=== PATIENT | female | born 1995 | race Caucasian/White ===

== ENCOUNTER 2023-04-02 22:00 | Emergency (ER) | payer OTHER, MEDICAID ==
[2023-04-02] MEDS ORDERED: Doxycycline 100 MG Cap PO ONE (23:08)
[2023-04-02] MEDS ORDERED: cefTRIAXone 500 MG Vial IM ONE (23:08)
[2023-04-04 17:06] LABS: HEPATITIS B SURFACE ANTIBODY <3.10 IU/L
[2023-04-04 19:07] LABS: HEPATITIS A ANTIBODY, IGM Negative (Negative); HEPATITIS B CORE ANTIBODY, IGM Negative (Negative); HEPATITIS B SURFACE ANTIGEN Negative (Negative); HEPATITIS C AB CIA INTERP Negative (Negative); HEPATITIS C ANTIBODY CIA INDEX 0.05 IV; HIV 1,2 COMBO ANTIGEN/ANTIBODY Negative (Negative)
[2023-04-04 22:54] LABS: RAPID PLASMA REAGIN (RPR) Non Reactive (Non Reactive)
[2023-04-06 10:15] LABS: APTIMA MEDIA TYPE Urine; C. TRACHOMATIS BY TMA Negative (Negative); N. GONORRHOEAE BY TMA Negative (Negative); SPECIMEN SOURCE Urine; T. VAGINALIS BY TMA Negative (Negative)
== END 2023-04-03 00:50 | disposition home or self-care (01) ==
LOC: JP.ED 22:00
DX: S16.1XXA Strain of muscle, fascia and tendon at neck level, initial encounter (principal); S50.11XA Contusion of right forearm, initial encounter; S50.12XA Contusion of left forearm, initial encounter; S00.83XA Contusion of other part of head, initial encounter; M25.551 Pain in right hip; M25.552 Pain in left hip; F17.210 Nicotine dependence, cigarettes, uncomplicated; Y04.0XXA Assault by unarmed brawl or fight, initial encounter
CPT/HCPCS: 36415; 70450; 70486; 72125; 76377; 80074; 81025; 86592; 86706; 87389; 87491; 87591; 87661; 96372; 99284; A9270; J0696

== ENCOUNTER 2023-04-06 23:40 | Emergency (ER) | payer MEDICAID, OTHER ==
[2023-04-07 01:17] LABS: BASOPHILS ABSOLUTE AUTO 0.06 K/uL (0.00-0.10); BASOPHILS PERCENT AUTO 0.8 % (0.1-1.3); EOSINOPHILS ABSOLUTE AUTO 0.04 K/uL (0.00-0.40); EOSINOPHILS PERCENT AUTO 0.5 % (0.0-5.4); HEMATOCRIT 45.1 % (34.3-46.0); HEMOGLOBIN 15.2 g/dL (11.2-15.5); IMMATURE GRAN ABSOLUTE AUTO 0.07 K/uL (0.00-0.23); IMMATURE GRAN PERCENT AUTO 0.9 % (0.0-0.7); LYMPHOCYTES ABSOLUTE AUTO 1.73 K/uL (0.8-3.3); LYMPHOCYTES PERCENT AUTO 23.4 % (11.4-47.7); MEAN CORPUSCULAR HEMOGLOBIN 31.7 pg (31.6-35.5); MEAN CORPUSCULAR HGB CONC 33.7 g/dL (31.6-35.5); MONOCYTES ABSOLUTE AUTO 0.48 K/uL (0.20-0.90); MONOCYTES PERCENT AUTO 6.5 % (3.3-12.6); NEUTROPHILS PERCENT AUTO 67.9 % (40.0-78.1); PLATELET COUNT,PLT 352 K/uL (130-375); WHITE BLOOD CELL COUNT,WBC 7.4 K/uL (3.2-11.0)
[2023-04-07 01:43] LABS: APPEARANCE,URINE CLEAR (CLEAR); BILIRUBIN,URINE NEGATIVE (NEGATIVE); COLOR,URINE BROWN (YELLOW); GLUCOSE,URINE NEGATIVE (NEGATIVE); KETONES,URINE NEGATIVE (NEGATIVE); LEUKOCYTE ESTERASE,URINE TRACE (NEGATIVE); NITRITE,URINE NEGATIVE (NEGATIVE); OCCULT BLOOD,URINE NEGATIVE (NEGATIVE); PROTEIN,URINE NEGATIVE (NEGATIVE); UROBILINOGEN,URINE 0.2 EU/dL (0.2-1.0)
[2023-04-07 01:49] LABS: A/G RATIO 1.2 (1.2-2.2); ALANINE AMINOTRANSFERASE,ALT 269 U/L (12-78); ALBUMIN 4.4 g/dL (3.4-5.0); ALKALINE PHOSPHATASE 129 U/L (46-116); ASPARTATE AMNIOTRANSFERASE,AST 214 U/L (15-37); BILIRUBIN TOTAL 0.6 mg/dL (0.2-1.0); BLOOD UREA NITROGEN,BUN 4 mg/dL (7-18); CALCIUM 9.4 mg/dL (8.5-10.1); CARBON DIOXIDE,CO2 24 mmol/L (21-32); CHLORIDE,CL 103 mmol/L (100-108); CREATININE 0.8 mg/dL (0.6-1.0); ESTIMATED GFR 102 mL/min (>60); GLUCOSE RANDOM 103 mg/dL (74-106); POTASSIUM,K 3.5 mmol/L (3.6-5.2); SODIUM,NA 142 mmol/L (140-148)
[2023-04-07 01:55] LABS: ANION GAP 18.5 mmol/L (5.0-14.0)
[2023-04-07 01:56] LABS: AMPHETAMINES SCREEN, URINE NEGATIVE (NEGATIVE); BARBITURATE SCREEN,URINE NEGATIVE (NEGATIVE); BENZODIAZEPINES SCREEN,URINE PRESUMPTIVE POSITIVE (NEGATIVE); METHADONE SCREEN, URINE NEGATIVE (NEGATIVE); METHAMPHETAMINES SCREEN, URINE NEGATIVE (NEGATIVE); OXYCODONE SCREEN,URINE NEGATIVE (NEGATIVE); PROPOXYPHENE SCREEN,URINE NEGATIVE (NEGATIVE); THC SCREEN,URINE 50 NG/ML NEGATIVE (NEGATIVE)
[2023-04-07 02:07] LABS: AMORPHOUS SEDIMENT,URINE NOT SEEN; BACTERIA,URINE FEW; EPITHELIAL CELLS,URINE FEW; MUCUS,URINE NOT SEEN; RBC,URINE 0-5 (0-5); WBC,URINE 0-5 (0-5)
[2023-04-07] MEDS ORDERED: traZODone 50 MG Tab PO ONE (02:28)
== END 2023-04-07 02:45 | disposition home or self-care (01) ==
LOC: JP.ED 23:40
DX: F32.A Depression, unspecified (principal); F10.10 Alcohol abuse, uncomplicated; R45.89 Other symptoms and signs involving emotional state; F17.210 Nicotine dependence, cigarettes, uncomplicated
CPT/HCPCS: 36415; 80053; 80305-QW; 80307; 81001; 84443; 85025; 99284; A9270-GY

== ENCOUNTER 2023-04-07 17:23 | Emergency (ER) | payer SELFPAY ==
[2023-04-07 18:10] LABS: AMPHETAMINES SCREEN, URINE NEGATIVE (NEGATIVE); BARBITURATE SCREEN,URINE NEGATIVE (NEGATIVE); BENZODIAZEPINES SCREEN,URINE PRESUMPTIVE POSITIVE (NEGATIVE); METHADONE SCREEN, URINE NEGATIVE (NEGATIVE); METHAMPHETAMINES SCREEN, URINE NEGATIVE (NEGATIVE); OXYCODONE SCREEN,URINE NEGATIVE (NEGATIVE); PROPOXYPHENE SCREEN,URINE NEGATIVE (NEGATIVE); THC SCREEN,URINE 50 NG/ML NEGATIVE (NEGATIVE)
== END 2023-04-07 19:27 | disposition home or self-care (01) ==
LOC: JP.ED 17:23
DX: Z02.89 Encounter for other administrative examinations (principal)
CPT/HCPCS: 36415; 80305-QW; 80307; 81025; 99284